=== PATIENT | female | born 1955 | race Caucasian/White ===

== ENCOUNTER 2020-02-27 03:17 | Emergency (ER) | payer OTHER ==
[~2020-02-27] VITALS: Ht 165.1 cm; Wt 74.7 kg
[2020-02-27 03:20] VITALS: BP 143/95
--- NOTE | 2020-02-27 03:36 | PHYS DOC ---
Past History Past Medical History: Hypertension Past Surgical History: Appendectomy Past Surgical History pituitary adenoma sx Smoking: Non-smoker Alcohol Use: None Drug Use: None General Adult EDM: Chief Complaint: painful urination HPI: HPI: Patient is a 64 year old female who presents for evaluation of pain, burning and urgency with urination. Onset of symptoms over the past 24 hours. She has a lower "stomach ache". She has tried increase fluids but no improvement of symptoms. Patient is recently in this area from [place]. She has a close family member who is currently on hospice. Patient denies any fevers or chills. Patient did notice some blood in her urine earlier today. Patient has a history of prior bladder infections and usually ends up taking Azo. [] Review of Systems: Review of Systems: Constitutional: Denies fever or chills Eyes: Denies change in visual acuity HENT: Denies nasal congestion or sore throat Respiratory: Denies cough or shortness of breath Cardiovascular: Denies chest pain or edema GI: lower abdominal pain, no nausea, vomiting, bloody stools or diarrhea : has dysuria Musculoskeletal: Denies back pain or joint pain Integument: Denies rash Neurologic: Denies headache, focal weakness or sensory changes Endocrine: Denies polyuria or polydipsia Lymphatic: Denies swollen glands Psychiatric: Denies depression or anxiety Heart Score: Risk Factors: Risk Factors: DM, Current or recent (<one month) smoker, HTN, HLP, family history of CAD, obesity. Risk Scores: Score 0 - 3: 2.5% MACE over next 6 weeks - Discharge Home Score 4 - 6: 20.3% MACE over next 6 weeks - Admit for Clinical Observation Score 7 - 10: 72.7% MACE over next 6 weeks - Early Invasive Strategies Physical Exam: PE: Constitutional: Well developed, well nourished, mild acute distress, non-toxic appearance. [] HENT: Normocephalic, atraumatic, bilateral external ears normal, oropharynx moist, no oral exudates, nose normal. [] Eyes: PERRL, EOMI, conjunctiva normal, no discharge. [] Neck: Normal range of motion, no tenderness, supple, no stridor. [] Cardiovascular:Heart rate regular rhythm, no murmur [] Lungs & Thorax: Bilateral breath sounds clear to auscultation [] Abdomen: Bowel sounds normal, soft, minimal suprapubic tender, no masses. [] Skin: Warm, dry, no erythema, no rash. [] Back: No tenderness, no CVA tenderness. [] Extremities: No tenderness, no cyanosis, no clubbing, ROM intact, no edema. [] Neurologic: Alert and oriented X 3, normal motor function, normal sensory function, no focal deficits noted. [] Psychologic: Affect normal, judgement normal, mood normal. [] EKG: EKG: [] Radiology/Procedures: Radiology/Procedures: [] Course & Med Decision Making: Course & Med Decision Making Pertinent Labs and Imaging studies reviewed. (See chart for details) 0401 stable, patient clearly has a bladder infection with hematuria. Will treat with IM Rocephin here in the emergency department. Patient already has home Azo. Prescription for Keflex given as well. Detailed follow-up instructions given and she is to return if worsen [] Dragon Disclaimer: Dragon Disclaimer: This electronic medical record was generated, in whole or in part, using a voice recognition dictation system. Departure Departure: Impression: Primary Impression: Acute UTI Additional Impression: Hematuria Disposition: HOME, SELF-CARE Condition: STABLE Referrals: PCP,UNKNOWN (PCP) DON DELONG MD Patient Instructions: Hematuria, Adult, Urinary Tract Infection Additional Instructions: Drink plenty fluids, rest, take medication as directed including your home Azo. You received a prescription for Keflex which you are to start in 1 day Scripts Cephalexin (KEFLEX) 250 Mg Capsule 1 CAP PO QID for UTI for 7 Days, #28 CAP 0 Refills Prov: ANTONI SEARS DO 02/27/20 ANTONI SEARS DO Feb 27, 2020 03:36
[2020-02-27 03:56] LABS: BACTERIA,URINE FEW /HPF (0-FEW); BILIRUBIN,URINE NEG (NEG); CLARITY,URINE CLOUDY; COLOR,URINE RED; GLUCOSE,URINE NEG (NEG); NITRITE,URINE NEG (NEG); RBC,URINE TNTC /HPF (0-2); SQUAMOUS EPITHELIAL CELL,UR OCC /LPF; UROBILINOGEN,URINE 0.2 mg/dL (0.2 mg/dL); WBC,URINE TNTC /HPF (0-4)
[2020-02-27] MEDS ORDERED: CEPH-263 PO (04:13)
[2020-02-27] MEDS ORDERED: LIDOCAINE 1% Multi-Dose 20 ML VIAL. ONE (04:17)
[2020-02-27] MEDS ORDERED: cefTRIAXone IM 1 GM VIAL IM ONE (04:30)
== END 2020-02-27 04:25 | disposition home or self-care (01) ==
LOC: ER 03:17
DX: N39.0 Urinary tract infection, site not specified (principal); R31.9 Hematuria, unspecified; I10 Essential (primary) hypertension; Z90.89 Acquired absence of other organs
CPT/HCPCS: 81001; 96372; 99283; J0696